=== PATIENT | male | born 1975 | race African-American/Black ===

== ENCOUNTER 2021-04-15 12:39 | Emergency (ER) | payer OTHER ==
[~2021-04-15] VITALS: Ht 180.3 cm; Wt 78.5 kg
[2021-04-15 13:35] VITALS: BP 189/110
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
[2021-04-15] MEDS ORDERED: CYCL10TA19 PO (15:08)
[2021-04-15] MEDS ORDERED: NAPR-514 PO (15:08)
== END 2021-04-15 15:13 | disposition home or self-care (01) ==
LOC: ER 12:39
DX: S13.9XXA Sprain of joints and ligaments of unspecified parts of neck, initial encounter (principal); S23.9XXA Sprain of unspecified parts of thorax, initial encounter; S33.5XXA Sprain of ligaments of lumbar spine, initial encounter; I10 Essential (primary) hypertension; V43.52XA Car driver injured in collision with other type car in traffic accident, initial encounter; Y93.89 Activity, other specified; Y92.488 Other paved roadways as the place of occurrence of the external cause; Y99.8 Other external cause status
CPT/HCPCS: 72040; 72072; 72100; 99284